=== PATIENT | female | born 1990 | race Caucasian/White ===

== ENCOUNTER 2016-10-04 16:50 | Emergency (ER) | payer BC ==
[~2016-10-04] VITALS: Ht 160 cm; Wt 67.0 kg
[2016-10-04 16:53] VITALS: Ht 160 cm; Wt 67.0 kg
[2016-10-04 17:31] LABS: URINE BLOOD (Dip) POC Negative (NEGATIVE)
--- NOTE | 2016-10-04 18:04 | ERD ---
ER Documentation Chief Complaint Date/Time DATE: 10/04/16 TIME: 18:01 Chief Complaint rlq abdominal pain radiating across abdomen, late on lmp HPI This 26-year-old female who presents the emergency department today complaining of intermittent pelvic pain for the past 2-3 days. Patient states that her last menstrual period was on September 20 - September 24 and then 1 week later she started bleeding for a couple of days. States she has irregular menses. Denies any vaginal bleeding currently. States that 2 days ago when she went to an [facility] and they did some testing however she is not sure what they did. States earlier in the year she was treated for chlamydia states she also feels some lightheadedness. States that she is concerned she has an ectopic . Denies any fevers or chills, nausea vomiting or diarrhea. ROS All systems reviewed and are negative except as per history of present illness. Medications Home Meds Active Scripts Nitrofurantoin Monohyd Macrocr* (Macrobid*) 100 Mg Capsr, 100 MG PO BID for 7 Days, CAP Prov:ALEX MCKEONC 10/04/16 Acetaminophen* (Tylophen*) 500 Mg Capsule, 1 CAP PO Q6H Y for PAIN AND OR ELEVATED TEMP, #30 CAP Prov:ALEX MCKEON PA-C 10/04/16 Naproxen* (Naprosyn*) 500 Mg Tablet, 500 MG PO BID Y for PAIN AND/OR INFLAMMATION, #30 TAB Prov:ALEX MCKEON-C 10/04/16 Allergies Allergies: Coded Allergies: No Known Allergy (Unverified , 04/02/13) PMhx/Soc History of Surgery: No Anesthesia Reaction: No Hx Neurological Disorder: No Hx Respiratory Disorders: No Hx Cardiac Disorders: No Hx Miscellaneous Medical Probl: No Hx Alcohol Use: No Hx Substance Use: No Hx Tobacco Use: No Physical Exam Vitals Vital Signs Date Time Temp Pulse Resp B/P Pulse Ox O2 Delivery O2 Flow Rate FiO2 10/04/16 16:53 97.8 78 18 154/67 100 Physical Exam Const: No acute distress Head: Atraumatic Eyes: Normal Conjunctiva ENT: Normal External Ears, Nose and Mouth. Neck: Full range of motion..~ No meningismus. Resp: Clear to auscultation bilaterally Cardio: Regular rate and rhythm, no murmurs Abd: Soft, mild left-sided pelvic pain, non distended. Normal bowel sounds no right lower quadrant pain. No tenderness McBurney's. Skin: No petechiae or rashes Back: No midline or flank tenderness Ext: No cyanosis, or edema Neur: Awake and alert Psych: Normal Mood and Affect Result Diagram: 10/04/16 18310/04/16 183 Results 24 hrs Laboratory Tests Test 10/04/16 17:32 10/04/16 18:30 Bedside Urine pH (LAB) 6.0 Bedside Urine Protein (LAB) Negative Bedside Urine Glucose (UA) Negative Bedside Urine Ketones (LAB) Negative Bedside Urine Blood Negative Bedside Urine Nitrite (LAB) Negative Bedside Urine Leukocyte Esterase (L 1+ White Blood Count 8.510^3/ul Red Blood Count 4.9110^6/ul Hemoglobin 14.8g/dl Hematocrit 44.4% Mean Corpuscular Volume 90.4fl Mean Corpuscular Hemoglobin 30.1pg Mean Corpuscular Hemoglobin Concent 33.3g/dl Red Cell Distribution Width 12.3% Platelet Count 80026^3/UL Mean Platelet Volume 9.8fl Neutrophils % 69.9% Lymphocytes % 24.5% Monocytes % 5.2% Eosinophils % 0.0% Basophils % 0.2% Nucleated Red Blood Cells % 0.0/100WBC Neutrophils # 5.910^3/ul Lymphocytes # 2.110^3/ul Monocytes # 0.410^3/ul Eosinophils # 0.010^3/ul Basophils # 0.010^3/ul Nucleated Red Blood Cells # 0.010^3/ul Sodium Level 141mmol/L Potassium Level 3.5mmol/L Chloride Level 101mmol/L Carbon Dioxide Level 26mmol/L Anion Gap 18 Blood Urea Nitrogen 9mg/dl Creatinine 0.54mg/dl Glucose Level 96mg/dl Calcium Level 9.5mg/dl Total Bilirubin 0.7mg/dl Direct Bilirubin 0.00mg/dl Indirect Bilirubin 0.7mg/dl Aspartate Amino Transf (AST/SGOT) 18IU/L Alanine Aminotransferase (ALT/SGPT) 25IU/L Alkaline Phosphatase 56IU/L Total Protein 8.4g/dl Albumin 5.0g/dl Globulin 3.40g/dl Albumin/Globulin Ratio 1.47 Lipase 48U/L DIAGNOSTIC IMAGING REPORT Patient: SUDHEER LEWIS : 1990 Age: 26 Sex: F [id number] DOS: 10/04/16 0000 Ordering MD: ALEX MCKEON PA-C Location: [facility] Room/Bed: PROCEDURE: US Pelvis. CLINICAL INDICATION: Pelvic pain TECHNIQUE: Multiple sonographic images of the pelvis were obtained utilizing a transabdominal and endovaginal technique. The images were reviewed on a PACS workstation. COMPARISON: None. FINDINGS: The uterus is anteverted and measures 7.1 x 4.3 x 3.0 cm. The endometrial echo complex is normal and measures 3.5 mm. There is no evidence for free fluid. The right ovary has a normal echotexture and measures 3.8 x 3.0 x 2.6 cm . The left ovary has a normal echotexture and measures 3.7 x 2.8 x 2.7 cm. No adnexal masses are noted. There are no findings of ovarian torsion. Normal follicular activity is present. IMPRESSION: Negative exam. RPTAT: EE .Cally Mcneil MD MD Date Time Electronically viewed and signed by .Cally Mcneil MD, MD on 10/04/2016 18:49 .F/ CC: ALEX MCKEON PA-C Procedures/MDM This is a 26-year-old female who presents to the emergency department today complaining of intermittent pelvic pain for the past 2-3 days. Patient states it alternates from her right to her left. She has had irregular menstrual cycles. Given this and patient's complaint of dizziness I did obtain laboratory work as well as a UA and an ultrasound. Laboratory work shows no elevated white blood cell count. She is not anemic. Platelets are within normal limits. Electrolytes are within normal limits. Liver functions within normal limits. Lipase within normal limits. UA shows 1+ leukocyte esterase Urine was sent for gonorrhea and chlamydia Urine test is negative Ultrasound is negative. There are no findings of ovarian torsion. There is normal follicular activity present there are no adnexal masses noted. There is no evidence of free fluid. Low suspicion for ectopic , tubal ovarian abscess, ovarian torsion. Low suspicion for acute surgical abdomen. Patient has pelvic pain of uncertain etiology however it may be possibly related to a urinary tract infection. I will give the patient a prescription for Macrobid. Patient's dizziness may be related to urinary tract infection. low suspicion for anemia or cardiogenic causes. I do not feel the patient requires an EKG. Patient declined pain medication here in the emergency department. She will be given prescription for Tylenol for home. She is instructed to follow-up with her [facility] about her previous test results. At this time the patient is stable for discharge and outpatient management. Patient should follow up with their PCP in the next 1-2 days. They may return to the emergency department sooner for any persistent or worsening of symptoms. Patient understood and agreed with the plan. Departure Diagnosis: Primary Impression: Pelvic pain Additional Impression: UTI (urinary tract infection) Urinary tract infection type: site unspecified Hematuria presence: without hematuria Qualified Code: N39.0 - Urinary tract infection without hematuria, site unspecified Condition: ALEX Cannon PA-C October 04, 2016 18:04
--- NOTE | 2016-10-04 18:49 | RADRPT ---
PROCEDURE: US Pelvis. CLINICAL INDICATION: Pelvic pain TECHNIQUE: Multiple sonographic images of the pelvis were obtained utilizing a transabdominal and endovaginal technique. The images were reviewed on a PACS workstation. COMPARISON: None. FINDINGS: The uterus is anteverted and measures 7.1 x 4.3 x 3.0 cm. The endometrial echo complex is normal and measures 3.5 mm. There is no evidence for free fluid. The right ovary has a normal echotexture and measures 3.8 x 3.0 x 2.6 cm . The left ovary has a normal echotexture and measures 3.7 x 2.8 x 2.7 cm. No adnexal masses are noted. There are no findings of ovarian torsion. Normal follicular activity is present. IMPRESSION: Negative exam. RPTAT: EE .Cally Mcneil MD, Date Time Electronically viewed and signed by .Cally Mcneil MD, on 10/04/2016 18:49 .F/
[2016-10-04 19:08] LABS: ADD SCAN DIFF NO
[2016-10-04 19:16] LABS: BASOPHILS % 0.2 % (0.0-2.0); HEMATOCRIT 44.4 % (37.0-47.0); HEMOGLOBIN 14.8 g/dl (12.0-16.0); LYMPHOCYTES # 2.1 10^3/ul (0.8-2.9); LYMPHOCYTES % 24.5 % (15.0-51.0); MEAN CORPUSCULAR HEMOGLOBIN 30.1 pg (29.0-33.0); MEAN CORPUSCULAR HGB CONC 33.3 g/dl (32.0-37.0); MEAN CORPUSCULAR VOLUME 90.4 fl (82.0-101.0); MEAN PLATELET VOLUME 9.8 fl (7.4-10.4); MONOCYTE # 0.4 10^3/ul (0.3-0.9); MONOCYTES % 5.2 % (0.0-11.0); NEUTROPHIL # 5.9 10^3/ul (1.6-7.5); NEUTROPHILS % 69.9 % (39.0-77.0); PLATELET COUNT 285 10^3/UL (140-415); RED BLOOD COUNT 4.91 10^6/ul (4.20-5.40); RED CELL DISTRIBUTION WIDTH 12.3 % (11.5-14.5); WHITE BLOOD COUNT 8.5 10^3/ul (4.8-10.8)
[2016-10-04 19:30] LABS: POTASSIUM 3.5 mmol/L (3.5-5.1)
[2016-10-04 19:32] LABS: BILIRUBIN,INDIRECT 0.7 mg/dl (0-1.1); BILIRUBIN,TOTAL 0.7 mg/dl (0.2-1.3); CREATININE 0.54 mg/dl (0.44-1.00)
[2016-10-04 19:33] LABS: ALBUMIN/GLOBULIN RATIO 1.47; CALCIUM 9.5 mg/dl (8.4-10.2); TOTAL PROTEIN 8.4 g/dl (6.1-8.1)
[2016-10-04] MEDS ORDERED: NAPR-260 PO (19:47)
[2016-10-04] MEDS ORDERED: NITR-58 PO (19:48)
[2016-10-04] MEDS ORDERED: ACET500C5 PO (19:48)
[2016-10-04 19:56] VITALS: BP 134/65; PULSE 68; RESP 18; TEMP 97.8
== END 2016-10-04 19:59 | disposition home or self-care (01) ==
LOC: FTE 16:50
DX: R10.2 Pelvic and perineal pain (principal); N39.0 Urinary tract infection, site not specified
CPT/HCPCS: 36415; 76830; 76856; 80053; 81003; 83690; 85025; 87591